=== PATIENT | male | born 1995 | race Caucasian/White ===

== ENCOUNTER 2018-07-22 23:03 | Emergency (ER) | payer SELFPAY ==
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
[2018-07-22 23:14] VITALS: BP 150/96; PULSE 107; RESP 18; TEMP 36.8; O2SAT 97
[2018-07-22] MEDS: TET,DIPH,PERTUSS(ACELL),VAC/PF 0.5 ML SYRINGE IM (23:26)
[2018-07-22 23:43] VITALS: BP 151/90; PULSE 99; RESP 18; O2SAT 98
== END 2018-07-22 23:44 | disposition home or self-care (01) ==
LOC: ED 23:51
PROVIDERS: Emergency Provider Emergency Medicine
DX: S01.81XA Laceration without foreign body of other part of head, initial encounter (principal); W06.XXXA Fall from bed, initial encounter; Z23 Encounter for immunization
CPT/HCPCS: 12013; 90471; 99283; 90715